=== PATIENT | female | born 2000 | race Caucasian/White ===

== ENCOUNTER 2019-03-09 07:00 | Emergency (ER) | payer OTHER ==
[2019-03-09] MEDS ORDERED: Ketorolac INJ* 30 MG/ML 1 ML VIAL IV ONE (07:37)
[2019-03-09] MEDS ORDERED: guaiFENesin 100 mg/5 ml LIQ unit dose cup PO ONE (07:37)
[2019-03-09] MEDS ORDERED: NS 0.9% 1000 ML** 1,000 ML IV ONE (07:37)
[2019-03-09] MEDS ORDERED: Ondansetron ODT TAB* 4 MG SL ONE (07:45)
[2019-03-09] MEDS: Ibuprofen TAB* 600 MG PO ONE ×2 (07:51→08:05)
[2019-03-09 07:53] LABS: Influenza B Molecular POSITIVE (Negative)
[2019-03-09] MEDS ORDERED: Ibuprofen PED LIQ 100 MG/5 ML UDC PO ONE (07:56)
[2019-03-09 09:16] VITALS: BP 119/73
--- NOTE | 2019-03-09 09:23 | ED ---
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 She endorses sick contacts around her dorm room. States she has been having a cough, congestion, headache, nausea and diarrhea 2 and half days. She has been taking Tylenol and ibuprofen. She has been taking 200 mg ibuprofen and 1 small capful of DayQuil and NyQuil. Her symptoms have not improved at the past 5 days. She states several people in her dorm room have been diagnosed with the flu virus. She did not get the flu vaccine this year. - History of Current Complaint Chief Complaint: EDFluSymptoms Time Seen by Provider: 03/09/19 07:18 Hx Obtained From: Patient Onset/Duration: Gradual Onset Severity: Moderate Associated Signs & Symptoms: Fever, T Max - 101.1, F/C, Myalgia, Cough, Headache Related Hx: Possible Flu/Infectious Exposure - Risk Factors Influenza Risk Factors: Negative - Allergy/Home Medications Allergies/Adverse Reactions: Allergies Allergy/AdvReac Type Severity Reaction Status Date / Time amoxicillin Allergy Severe RASH AND Verified 03/09/19 07:07 SWELLING sulfamethoxazole Allergy Rash Verified 03/09/19 07:07 [From Bactrim] trimethoprim [From Bactrim] Allergy Rash Verified 03/09/19 07:07 STRAW Allergy RASH AND Uncoded 03/09/19 07:07 SWELLING PMH/Surg Hx/FS Hx/Imm Hx Previously Healthy: Yes Endocrine/Hematology History: Denies: Hx Diabetes Cardiovascular History: Denies: Hx Hypertension, Hx Pacemaker/ICD Respiratory History: Reports: Other Respiratory Problems/Disorders - HX OF PNEUMONIA X 2 - LAST 2015 History: Denies: Hx Renal Disease Musculoskeletal History: Reports: Hx Tendonitis - AGE 6 Sensory History: Reports: Hx Contacts or Glasses - INSTRUCTS GIVEN Denies: Hx Hearing Aid Opthamlomology History: Reports: Hx Contacts or Glasses - INSTRUCTS GIVEN Psychiatric History: Denies: Hx Panic Disorder - Surgical History Surgery Procedure, Year, and Place: 2012 - LT KNEE - ACL RECONSTRUCTION Hx Anesthesia Reactions: No - Immunization History Hx Pertussis Vaccination: No Immunizations Up to Date: Yes Infectious Disease History: No Infectious Disease History: Denies: Traveled Outside the [place] in Last 30 Days - Social History Occupation: Student Lives: Dormitory/Roommates Alcohol Use: None Hx Substance Use: No Substance Use Type: Reports: None Hx Tobacco Use: No Smoking Status (MU): Never Smoked Tobacco Have You Smoked in the Last Year: No Review of Systems Positive: Fever, Chills, Fatigue, Skin Diaphoresis Negative: Palpitations, Chest Pain Positive: Shortness Of Breath, Cough Positive: Nausea. Negative: Abdominal Pain, Vomiting, Diarrhea Genitourinary: Negative Positive: no symptoms reported, see HPI Negative: Arthralgia, Myalgia Skin: Negative Positive: Headache All Other Systems Reviewed And Are Negative: Yes Physical Exam Triage Information Reviewed: Yes Vital Signs On Initial Exam: Initial Vitals Temp Pulse Resp BP Pulse Ox 100.2 F 101 16 128/63 98 03/09/19 07:01 03/09/19 07:01 03/09/19 07:01 03/09/19 07:01 03/09/19 07:01 Vital Signs Reviewed: Yes Appearance: Positive: Ill-Appearing Skin: Positive: Skin Color Reflects Adequate Perfusion Head/Face: Positive: Normal Head/Face Inspection Eyes: Positive: EOMI, Conjunctiva Clear ENT: Positive: Pharynx normal, Nasal congestion. Negative: Tonsillar swelling, Tonsillar exudate, Sinus tenderness, Uvula midline Neck: Positive: Supple, No Lymphadenopathy Respiratory/Lung Sounds: Positive: Clear to Auscultation, Breath Sounds Present Cardiovascular: Positive: RRR, Pulses are Symmetrical in both Upper and Lower Extremities Abdomen Description: Positive: Nontender, No Organomegaly, Soft Musculoskeletal: Positive: Strength/ROM Intact Neurological: Positive: Speech Normal Psychiatric: Positive: Affect/Mood Appropriate Procedures - Sedation Patient Received Moderate/Deep Sedation with Procedure: No Diagnostics - Vital Signs Vital Signs Temp Pulse Resp BP Pulse Ox 03/09/19 09:10 77 119/73 96 03/09/19 09:00 83 95 03/09/19 08:54 91 117/81 97 03/09/19 08:50 98.3 F 03/09/19 08:46 91 115/72 96 03/09/19 08:00 92 98 03/09/19 07:44 90 99 03/09/19 07:42 98.3 F 03/09/19 07:25 90 118/77 97 03/09/19 07:01 100.2 F 101 16 128/63 98 - Laboratory Lab Results: Lab Results 01/24/20 Range/Units 07:37 Influenza A (Rapid) Not Reportable Influenza B (Rapid) Positive A (Negative) Lab Statement: Any lab studies that have been ordered have been reviewed, and results considered in the medical decision making process. Flu Symptom Course/Dx - Course Course Of Treatment: Influenza positive. Patient appears somewhat diaphoretic, vital signs stable. She is given Zofran with good relief. She was also given ibuprofen liquid 600 mg with good relief. Robitussin with codeine given. She states her symptoms have improved greatly. She is drinking and eating well. Pt dx with influenza and will given rx for ibuprofen liquid. - Diagnoses Differential Diagnosis/HQI/PQRI: Positive: Upper Respiratory Infection, Other - PNA, viral syndrome Provider Diagnoses: Influenza Discharge ED - Sign-Out/Discharge Documenting (check all that apply): Patient Departure - Discharge Plan Condition: Stable Disposition: HOME Prescriptions: Ibuprofen ADULT LIQ* [Motrin LIQ ADULT*] 600 mg PO QID #600 [facility] Patient Education Materials: Influenza (ED) Referrals: Mary Julian MD [Primary Care Provider] - Additional Instructions: Tylenol 650mg four times daily OR dayquil/nyquil x 4 daily Ibuprofen 600mg four times daily Humidifier in the home will help Rest as much as possible [place], chicken noodle soup and other soft foods until symptoms resolve - Billing Disposition and Condition Condition: STABLE Disposition: Home
== END 2019-03-09 09:16 | disposition home or self-care (01) ==
LOC: ED 07:00
DX: J11.1 Influenza due to unidentified influenza virus with other respiratory manifestations (principal); Z88.0 Allergy status to penicillin; Z88.1 Allergy status to other antibiotic agents; Z88.2 Allergy status to sulfonamides
CPT/HCPCS: 99283; A9270-GY; J1885